=== PATIENT | male | born 1945 | race Caucasian/White ===

== ENCOUNTER → 2020-02-25 | Outpatient (CLI) | payer MEDICARE, BC ==
--- NOTE | 2020-02-25 08:31 | EKG ---
[facility] [address] [place] [id number] Test Date: 2020-02-25 Test Time: 08:24:46 Pat Name: KENDY LOWRY Department: Room: Gender: Manager [employer]: : 1945 Requested By: JULIANNA DORANTES Order Number: [id number] Reading MD: Measurements Intervals Freedom Rate: 89 P: 43 GA: 162 QRS: 0 QRSD: 70 T: 20 QT: 352 QTc: 429 Interpretive Statements SINUS RHYTHM LEFTWARD AXIS OTHERWISE NORMAL ECG RI6.02 No previous ECG available for comparison
== END ==
LOC: EKG 08:09
PROVIDERS: ATTEND Family Medicine
DX: Z01.810 Encounter for preprocedural cardiovascular examination (principal)
CPT/HCPCS: 93005